=== PATIENT | male | born 1950 | race Caucasian/White ===

== ENCOUNTER 2021-04-11 13:19 | Inpatient (IN) | payer MEDICARE ==
[~2021-04-11] VITALS: Ht 167.6 cm; Wt 51.7 kg
--- NOTE | 2021-04-11 13:41 | NUR ---
PT IS IN ROOM #1B. DR ROLLINS EVALUATED THE PT.
[2021-04-11] MEDS ORDERED: LISI10TA29 PO (13:51)
[2021-04-11] MEDS ORDERED: TRAM50TA2 PO (13:51)
[2021-04-11] MEDS ORDERED: GABA-532 PO (13:51)
[2021-04-11] MEDS ORDERED: BUTA1TAB52 PO (13:51)
[2021-04-11] MEDS ORDERED: ALPR0.25 PO (13:51)
[2021-04-11] MEDS ORDERED: TAMS-3 PO (13:51)
[2021-04-11] MEDS ORDERED: DOXE10CA2 PO (13:51)
[2021-04-11] MEDS ORDERED: LAMO100T17 PO (13:51)
[2021-04-11] MEDS ORDERED: ESCI20TA44 PO (13:51)
[2021-04-11 15:00] VITALS: BP 118/70
[2021-04-11] MEDS ORDERED: ACETAMINOPHEN 325 MG TABLET PO PRN (15:30)
[2021-04-11] MEDS ORDERED: TEMAZEPAM 7.5 MG CAPSULE PO PRN (15:30)
[2021-04-11] MEDS ORDERED: MAG HYDROX/AL HYDROX/SIMETH 30 ML LIQUID UDC PO PRN (15:30)
--- NOTE | 2021-04-11 15:34 | NUR ---
REPORT WAS GIVEN TO RN MHU. PT WAS TRANSFERED TO ROOM #141A.
--- NOTE | 2021-04-11 16:00 | NUR ---
PATIENT ARRIVED FROM ER VIA WHEELCHAIR. PATIENT IS AMBULATORY. DENIES SI AND DENIES HARM TO OTHERS. HE IS COMPLIANT WITH CARE. DENIES PAIN/DISCOMFORT. CONSENTS SIGNED. ORIENTED THE PATIENT TO THE UNIT. ALL NEEDS ATTENDED. SAFETY MEASURES MAINTAINED. WILL ENDORSE TO THE NEXT SHIFT FOR CONTINUITY OF CARE.
--- NOTE | 2021-04-11 17:47 | NUR ---
PATIENT ARRIVED FROM ER VIA WHEELCHAIR. HE IS AMBULATORY. DENIES SI AND HARM TO OTHERS. HE IS COMPLIANT WITH CARE. DENIES PAIN. PHOTO TAKEN AND IN CHART. WOUND CARE CONSULT FOR THE BACK OF THE EAR, NOSE, UPPER BACK AND LEFT FOOT. HE STATED HE DOES NOT HAVE A FAMILY TO BE CONTACTED. CONSENTS SIGNED. ORIENTED THE PATIENT TO THE UNIT. SAFETY MEASURES MAINTAINED. WILL ENDORSE TO THE NEXT SHIFT FOR CONTINUITY OF CARE. Addendum: 04/11/21 at 1848 by SRIRAM RAY RN DISREGARD NOTE. WRONG ENTRY.
[2021-04-11 20:00] VITALS: BP 103/67
[2021-04-11] MEDS ORDERED: TRAMADOL HCL 50 MG TABLET PO PRN (20:15)
--- NOTE | 2021-04-12 06:45 | NUR ---
GPS/NSG Patient refused lab draw this a.m., slept eight hours and forty-five minutes. Continue to monitor as well as follow plan of care.
[2021-04-12 07:30] VITALS: BP 104/58
[2021-04-12] MEDS ORDERED: [UNRECOGNIZED DRUG - OTHER] PO SCH (09:00)
[2021-04-12] MEDS ORDERED: BUTALBITAL PO SCH (09:00)
[2021-04-12] MEDS ORDERED: ACETAMINOPHEN PO SCH (09:00)
[2021-04-12] MEDS: LISINOPRIL 10 MG TABLET PO SCH (09:00)
[2021-04-12] MEDS: TAMSULOSIN HCL 0.4 MG CAP.SR.24H PO SCH (09:34)
[2021-04-12] MEDS: ESCITALOPRAM OXALATE 10 MG TABLET PO SCH (11:08)
[2021-04-12] MEDS: ARIPIPRAZOLE 2 MG TABLET PO SCH (11:12)
[2021-04-12] MEDS: LAMOTRIGINE 100 MG TABLET PO SCH ×2 (11:12→21:12)
[2021-04-12 17:12] VITALS: BP 104/70
[2021-04-12] MEDS: GABAPENTIN 300 MG CAPSULE PO SCH (17:16)
--- NOTE | 2021-04-12 19:03 | NUR ---
Received patient sleeping in his room. A/O X 2 to person, place. Pt. is withdrawn, isolative, quiet, does not interact, cooperative with care, and compliant with medications. Fall and safety precautions implemented.
[2021-04-12 20:00] VITALS: BP 97/60
[2021-04-12] MEDS: MIRTAZAPINE 15 MG TABLET PO SCH (21:12)
[2021-04-13 07:30] VITALS: BP 91/57
[2021-04-13] MEDS: LISINOPRIL 10 MG TABLET PO SCH (09:00)
[2021-04-13] MEDS: ARIPIPRAZOLE 2 MG TABLET PO SCH (09:37)
[2021-04-13] MEDS: LAMOTRIGINE 100 MG TABLET PO SCH ×2 (09:37→20:04)
[2021-04-13] MEDS: ESCITALOPRAM OXALATE 10 MG TABLET PO SCH (09:37)
[2021-04-13] MEDS: GABAPENTIN 300 MG CAPSULE PO SCH ×3 (09:38→17:42)
[2021-04-13] MEDS: TAMSULOSIN HCL 0.4 MG CAP.SR.24H PO SCH (09:40)
--- NOTE | 2021-04-13 10:58 | NUR ---
SW Initial Discharge Plan SW was unable to gather information from patient regarding his current living situation. Per psychiatric hold, patient was brought in from [facility] ED in [place], [place]. SW will coordinate with MD to find patient SNF placement. SW will continue to work with patient and MD to ensure a safe and proper discharge plan.
--- NOTE | 2021-04-13 11:39 | NUR ---
Firearms Report: Slope Hoist Operator completed and submitted a [employer] firearms report for 5150 danger to self certifications. A copy of report has been placed in patient chart.
[2021-04-13] MEDS: ENSURE ENLIVE (VAN) 240 ML LIQUID PO SCH ×2 (13:06→17:47)
[2021-04-13 18:04] VITALS: BP 107/55
--- NOTE | 2021-04-13 18:37 | NUR ---
remains isolative and to himself poor oral intake no suidie stated, remains malnutriton looking enhcourage interaction and mincrease po intake
[2021-04-13] MEDS: MIRTAZAPINE 15 MG TABLET PO SCH (20:04)
[2021-04-13 20:45] VITALS: BP 135/69
--- NOTE | 2021-04-14 06:38 | NUR ---
Remain calm and cooperative. compliant with meds. slept 7.45 hrs through the night.
[2021-04-14] MEDS: LAMOTRIGINE 100 MG TABLET PO SCH ×2 (08:29→20:05)
[2021-04-14] MEDS: ESCITALOPRAM OXALATE 10 MG TABLET PO SCH (08:29)
[2021-04-14] MEDS: TAMSULOSIN HCL 0.4 MG CAP.SR.24H PO SCH (08:29)
[2021-04-14] MEDS: ARIPIPRAZOLE 2 MG TABLET PO SCH (08:29)
[2021-04-14] MEDS: ENSURE ENLIVE (VAN) 240 ML LIQUID PO SCH ×3 (08:30→17:02)
[2021-04-14] MEDS: LISINOPRIL 10 MG TABLET PO SCH (08:30)
[2021-04-14] MEDS: GABAPENTIN 300 MG CAPSULE PO SCH ×2 (08:35→17:02)
[2021-04-14] MEDS: MAGNESIUM HYDROXIDE 30 ML LIQUID UDC PO PRN (14:00)
--- NOTE | 2021-04-14 18:17 | NUR ---
GPS: Nursing Notes: Destructive Behavior to Self: Patient is awake and responding to his name, isolative and withdrawn in his room, no interactions with peers, depressed mood and flat affect, selectively mute, unable to formulate a viable plan for self care, unkempt appearance, resistant with nursing care, denies SI, continue to monitor for safety, refusing to participate in therapeutic groups, continue with treatment plan.
[2021-04-14] MEDS: MIRTAZAPINE 15 MG TABLET PO SCH (20:05)
[2021-04-14] MEDS: LORAZEPAM 1 MG TABLET PO PRN (20:05)
--- NOTE | 2021-04-15 03:13 | NUR ---
Received patient in his room acting bizarre when the SPOILAGE WORKER was asking him to take the VS. This patient jumped back and kicked the air, behaving paranoid and had been refusing VS the whole day. When it came time for this communications writer to give him his PM medications, the patient was non compliant at first, reluctant and angry. This patient was unable to engage in any meaningful conversation. He only wanted to talk about his " Constipation". The patient has poor eye contact , and shuts down when asked about SI. Safety stratiges are in place and frequent rounding done to ensure safety.
[2021-04-15] MEDS: ARIPIPRAZOLE 5 MG TABLET PO SCH (08:23)
[2021-04-15] MEDS: GABAPENTIN 300 MG CAPSULE PO SCH ×2 (08:23→16:27)
[2021-04-15] MEDS: TAMSULOSIN HCL 0.4 MG CAP.SR.24H PO SCH (08:23)
[2021-04-15] MEDS: LAMOTRIGINE 100 MG TABLET PO SCH ×2 (08:23→20:04)
[2021-04-15] MEDS: ESCITALOPRAM OXALATE 10 MG TABLET PO SCH (08:23)
[2021-04-15] MEDS: LISINOPRIL 10 MG TABLET PO SCH (08:24)
[2021-04-15] MEDS: MAGNESIUM HYDROXIDE 30 ML LIQUID UDC PO PRN (08:31)
[2021-04-15] MEDS: ENSURE ENLIVE (VAN) 240 ML LIQUID PO SCH ×3 (08:32→16:27)
[2021-04-15 08:57] VITALS: BP 118/80
[2021-04-15] MEDS ORDERED: BISACODYL 10 MG SUPP.RECT RC ONE (14:00)
[2021-04-15 16:52] VITALS: BP 84/54
--- NOTE | 2021-04-15 17:23 | NUR ---
GPS: Nursing Notes: Destructive Behavior To Self: Patient is awake and responding to his name, poor anger management, banging on the wall when his demands are not met immediately, redirected and setting limits during shift, refusing to participate in therapeutic groups, no interactions with peers, unkempt appearance, refusing to take a shower, depressed mood and irritable affect, unable to formulate a viable plan for self care, continue with treatment plan.
[2021-04-15] MEDS: LORAZEPAM 1 MG TABLET PO PRN (20:04)
[2021-04-15] MEDS: MIRTAZAPINE 15 MG TABLET PO SCH (20:04)
[2021-04-15 20:10] VITALS: BP 101/55
--- NOTE | 2021-04-16 01:32 | NUR ---
Received the patient at the start of the shift, asking for his cloths.The race and sports book writer was able to assist the patient with a shower. Prior to the patient exiting his room, he began to shake and wobble back and forth in a strange manor. When asked why he was doing that he said " This is what I do when I am anxious ". The slightest task or change in the routine seems to be overwhelming to the patient. The patient did deny SI at that time and has been medication compliant. His affect is depressed and there is minimal interaction noticed with his peers. Safety Stratiges are in place and continuing encouraging the patient to verbalize his feelings.
[2021-04-16 08:19] VITALS: BP 103/63
[2021-04-16] MEDS: GABAPENTIN 300 MG CAPSULE PO SCH ×3 (08:48→16:41)
[2021-04-16] MEDS: ESCITALOPRAM OXALATE 10 MG TABLET PO SCH (08:48)
[2021-04-16] MEDS: ARIPIPRAZOLE 5 MG TABLET PO SCH (08:48)
[2021-04-16] MEDS: TAMSULOSIN HCL 0.4 MG CAP.SR.24H PO SCH (08:48)
[2021-04-16] MEDS: LISINOPRIL 10 MG TABLET PO SCH (08:48)
[2021-04-16] MEDS: LAMOTRIGINE 100 MG TABLET PO SCH ×2 (08:48→21:06)
[2021-04-16] MEDS: ENSURE ENLIVE (VAN) 240 ML LIQUID PO SCH ×3 (08:48→16:42)
[2021-04-16] MEDS: MAGNESIUM HYDROXIDE 30 ML LIQUID UDC PO PRN (09:25)
--- NOTE | 2021-04-16 14:55 | NUR ---
GPS: Nursing Notes: Destructive Behavior To Self: Patient is awake and responding to his name, impaired judgment, unkempt appearance, poor anger management, gets easily irritable when redirected, depressed mood and anxious affect, isolative and withdrawn in his room, encouraged to participate in therapeutic groups, evasive when questioned by staff, unable to formulate a viable plan for self care, continue to monitor for safety, continue with treatment plan.
[2021-04-16 16:03] VITALS: BP 88/60
[2021-04-16 19:55] VITALS: BP 101/56
[2021-04-16] MEDS: MIRTAZAPINE 15 MG TABLET PO SCH (21:06)
--- NOTE | 2021-04-17 06:02 | NUR ---
Patient was quite at the start of the shift, cooperative with his medications. No aggressive behavior noted. Able to slept for 7 hrs and 30min. Safety strategies provided, continue on treatment plan.
[2021-04-17 08:00] VITALS: BP 115/59
[2021-04-17] MEDS: ESCITALOPRAM OXALATE 10 MG TABLET PO SCH (08:36)
[2021-04-17] MEDS: LISINOPRIL 10 MG TABLET PO SCH (08:36)
[2021-04-17] MEDS: GABAPENTIN 300 MG CAPSULE PO SCH ×3 (08:36→17:28)
[2021-04-17] MEDS: LAMOTRIGINE 100 MG TABLET PO SCH ×2 (08:37→21:22)
[2021-04-17] MEDS: TAMSULOSIN HCL 0.4 MG CAP.SR.24H PO SCH (08:37)
[2021-04-17] MEDS: ENSURE ENLIVE (VAN) 240 ML LIQUID PO SCH ×3 (08:37→17:27)
[2021-04-17] MEDS: ARIPIPRAZOLE 5 MG TABLET PO SCH (08:49)
--- NOTE | 2021-04-17 09:18 | NUR ---
GPS: PT ON BED, ALERT AND VERBALLY RESPONSIVE. PT FIXATED WITH CONSTIPATION MEDS. ASKING FOR MEDS COMPLAINING FOR CONSTIPATION BUT PT HAD A BOWEL MOVEMENT LAST NIGHT PER PREVIOUS NIGHT NURSE REPORT. DENIES ANY PAIN. COOPERATIVE WITH CARE AND COMPLIANT WITH MEDS. NO AGITATION AT THIS TIME.
[2021-04-17 16:00] VITALS: BP 90/49
--- NOTE | 2021-04-17 17:42 | NUR ---
GPS: PT STAYED IN THE ROOM, ISOLATIVE. ANSWERS TO QUESTIONS APPROPRIATELY WHEN ASKED. ENCOURAGED TO PARTICIPATE GROUP THERAPY BUT REFUSED. PT COOPERATIVE WITH CARE AND COMPLIANT WITH MEDS.
[2021-04-17 21:05] VITALS: BP 107/61
[2021-04-17] MEDS: MIRTAZAPINE 15 MG TABLET PO SCH (21:22)
[2021-04-18 07:30] VITALS: BP 96/59
[2021-04-18] MEDS: ARIPIPRAZOLE 5 MG TABLET PO SCH (08:58)
[2021-04-18] MEDS: GABAPENTIN 300 MG CAPSULE PO SCH ×3 (08:58→17:39)
[2021-04-18] MEDS: LISINOPRIL 10 MG TABLET PO SCH (08:58)
[2021-04-18] MEDS: LAMOTRIGINE 100 MG TABLET PO SCH ×2 (08:59→21:52)
[2021-04-18] MEDS: ENSURE ENLIVE (VAN) 240 ML LIQUID PO SCH ×3 (08:59→17:40)
[2021-04-18] MEDS: TAMSULOSIN HCL 0.4 MG CAP.SR.24H PO SCH (08:59)
[2021-04-18] MEDS: ESCITALOPRAM OXALATE 10 MG TABLET PO SCH (08:59)
--- NOTE | 2021-04-18 15:18 | NUR ---
ANG Discharge Update: ANG spoke with Ruy from [facility] ([phone]) and discussed pt's discharge plan to a SNF upon discharge. Ruy noted that pt does have family however he is not in contact with them. Ruy stated he lives alone in the house that his mother had provided. Ruy is aware and agreeable with the initial discharge plan to a SNF.
[2021-04-18] MEDS: LORAZEPAM 1 MG TABLET PO PRN ×2 (15:40→21:01)
[2021-04-18 20:00] VITALS: BP 112/76
[2021-04-18] MEDS: MIRTAZAPINE 15 MG TABLET PO SCH (21:52)
[2021-04-18] MEDS: MAGNESIUM HYDROXIDE 30 ML LIQUID UDC PO PRN (21:53)
--- NOTE | 2021-04-19 04:52 | NUR ---
Received to care, lying in bed, pleasant upon approach. PRN Ativan was given at 2100 for anxiety. A short time after, he was encouraged to come out of his room, and interacted with staff, took a shower, and watched TV. He eventually went to bed, around midnight, and has been sleeping, since then. As of now, he continues to sleep. No distress, noted.
--- NOTE | 2021-04-19 08:03 | NUR ---
ANG Coordination of Care" Outside Physical Damage Appraiser faxed patient's referral packet including: History and Physical, Consultation, Progress Notes, Medication List and Labs to the following facilities for review and possible nursing home placement: [address] [address] ([phone])
[2021-04-19] MEDS: LAMOTRIGINE 100 MG TABLET PO SCH ×2 (08:41→21:32)
[2021-04-19] MEDS: GABAPENTIN 300 MG CAPSULE PO SCH ×3 (08:42→17:54)
[2021-04-19] MEDS: ESCITALOPRAM OXALATE 10 MG TABLET PO SCH (08:42)
[2021-04-19] MEDS: ENSURE ENLIVE (VAN) 240 ML LIQUID PO SCH ×3 (08:42→17:54)
[2021-04-19] MEDS: TAMSULOSIN HCL 0.4 MG CAP.SR.24H PO SCH (08:42)
[2021-04-19] MEDS: LISINOPRIL 10 MG TABLET PO SCH (08:42)
[2021-04-19] MEDS: ARIPIPRAZOLE 5 MG TABLET PO SCH (08:42)
[2021-04-19] MEDS: MAGNESIUM HYDROXIDE 30 ML LIQUID UDC PO PRN ×2 (09:14→21:48)
--- NOTE | 2021-04-19 11:03 | NUR ---
ANG Discharge Update: Casi in admissions at [facility] [address] [facility] [address] ([phone]) stated pt is accepted upon discharge. notified Dr. Saucedo. Discharge is scheduled for 04/20/21. Facility is aware and ready to accept the pt.
--- NOTE | 2021-04-19 11:19 | NUR ---
GPS: PT ALERT AND VERBALLY RESPONSIVE. DENIES ANY PAIN OR DISCOMFORT. PT PACE THE HALLWAY AND APPROACHED ONE OF THE PT AND ASK IF HE CAN HAVE A CONVERSATION WITH HIM. PT HAVE A GOOD MOOD AND STARTING TO GET OUT OF ROOM. PARTICIPATED WITH GROUP THERAPY AND EXERCISES. PT SAID HE'S EXCITED GOING HOME. NO AGITATION NOTED AT THIS TIME.
[2021-04-19 16:00] VITALS: BP 105/61
--- NOTE | 2021-04-19 18:32 | NUR ---
GPS: PT ON BED, DENIES ANY PAIN OR DISCOMFORT. GIVEN MILK OF MAGNESIA PT COMPLAINT OF CONSTIPATION. PT WITH NO EPISODE OF AGITATION. TRIES TO WALK AROUND THE HALLWAY AND GREET OTHER PT AND STAFF.
[2021-04-19 20:54] VITALS: BP 105/67
[2021-04-19] MEDS: MIRTAZAPINE 15 MG TABLET PO SCH (21:32)
[2021-04-19] MEDS: LORAZEPAM 1 MG TABLET PO PRN (22:30)
--- NOTE | 2021-04-20 05:52 | NUR ---
eceived to care, lying in bed, pleasant upon approach. PRN Ativan was given at bedtime for anxiety. He remains isolative, but denies feeling suicidal.He has been sleeping, since then. As of now, he continues to sleep. No distress, noted.
[2021-04-20 08:17] VITALS: BP 102/62
[2021-04-20] MEDS: ARIPIPRAZOLE 5 MG TABLET PO SCH (08:46)
[2021-04-20 08:47] VITALS: BP 102/61
[2021-04-20] MEDS: TAMSULOSIN HCL 0.4 MG CAP.SR.24H PO SCH (08:47)
[2021-04-20] MEDS: LISINOPRIL 10 MG TABLET PO SCH (08:47)
[2021-04-20] MEDS: GABAPENTIN 300 MG CAPSULE PO SCH (08:47)
[2021-04-20] MEDS: ESCITALOPRAM OXALATE 10 MG TABLET PO SCH (08:47)
[2021-04-20] MEDS: LAMOTRIGINE 100 MG TABLET PO SCH (08:47)
[2021-04-20] MEDS: ENSURE ENLIVE (VAN) 240 ML LIQUID PO SCH (08:48)
[2021-04-20] MEDS ORDERED: CALCIUM POLYCARBOPHIL 625 MG TABLET PO SCH (09:00)
--- NOTE | 2021-04-20 09:18 | NUR ---
SW Discharge Update: SW contacted and left a detailed voicemail for Ruy from [facility] ([phone]) regarding pt's discharge plan to [facility] [address] [place] [address] ([phone]) today at 11AM. SW stated the name, address, and contact info for the facility and stated to call back for further questions.
--- NOTE | 2021-04-20 09:32 | NUR ---
ANG Discharge Note: Pt will be discharged to [facility] [address] ([phone]) via Ambulance transportation at 11AM. ANG spoke with admin coordinator, Casi at the facility who states they are ready to accept the patient today. Pt is aware and agreeable with discharge plans. ANG spoke with Ruy at [facility] ([phone]) who is aware and agreeable with the discharge plan. ANG contacted Ruy and left a voicemail stating the discharge details to [facility] at 11am and for a call back with further questions. Pt is alert and oriented x1(name), is unable to plan for self-care at this time; however, is willing to accept care at SNF. Pt denies any suicidal or homicidal ideation. Pt will follow-up at the facility with Psychiatrist, Dr. Saucedo and Nursing Teacher, Dr. Vikcers at the facility. Pt presents with calm mood and congruent affect.
[2021-04-20] MEDS ORDERED: PSYLLIUM SEED PACKET PO SCH (09:33)
--- NOTE | 2021-04-20 10:51 | NUR ---
GPS: PT RECEIVED TODAY. ALERT AND VERBALLY RESPONSIVE. EXCITED TO BE DISCHARGE TODAY. PT COVID TEST DONE TODAY NEGATIVE RESULT. PT COOPERATIVE WITH CARE AND COMPLIANT WITH MEDICATIONS. PT WILL BE DISCHARGE TO [facility] AND WILL CONTINUE SERVICE WITH DR LUZ. GOOD CARE PROVIDED. ALL BELONGINGS SIGNED. ENDORSED PT TO [facility] AT [place]. AMBULANCE CAME TO TRANSPORT PT.
== END 2021-04-20 10:56 | DRG 885 ==
LOC: ER 13:19 → GPS 14:48
PROVIDERS: ADMIT Psychiatry & Neurology Psychiatry; ATTEND Family Medicine
DX: F31.5 Bipolar disorder, current episode depressed, severe, with psychotic features (principal); R45.851 Suicidal ideations; T42.4X2D Poisoning by benzodiazepines, intentional self-harm, subsequent encounter; J43.9 Emphysema, unspecified; F43.10 Post-traumatic stress disorder, unspecified; Z20.822 Contact with and (suspected) exposure to COVID-19; R56.9 Unspecified convulsions; Z59.00 Homelessness unspecified; Z79.899 Other long term (current) drug therapy; F41.9 Anxiety disorder, unspecified; Z88.2 Allergy status to sulfonamides; K59.00 Constipation, unspecified
CPT/HCPCS: 71045; 93005; 97161; A4663